=== PATIENT | male | born 1965 | race Caucasian/White ===

== ENCOUNTER 2017-10-12 15:11 | Observation (INO) | payer OTHER ==
[~2017-10-12] VITALS: Ht 165.1 cm; Wt 65.8 kg
[~2017-10-12 15:11] MED LIST: ALBUTEROL0.09 MG/A2; AZITHROMYCIN250 MG PO; MEDROL DOSEPAK1 PAC PO; PREDNISONE 20MG20 MG PO; ZOFRAN ODT4 MG PO
[2017-10-12 16:02] LABS: ABSOLUTE BASOPHIL COUNT 0 /CUMM (0.0-0.2); ABSOLUTE EOSINOPHIL COUNT 0.3 /CUMM (0.0-0.7); ABSOLUTE GRANULOCYTE CT 7.6 /CUMM (1.4-6.5); ABSOLUTE LYMPH COUNT 1.9 /CUMM (1.2-3.4); ABSOLUTE MONOCYTE COUNT 0.6 /CUMM (0.10-0.60); BASOPHIL % 0.4 % (0.0-2.0); EOSINOPHIL % 2.5 % (0-5); GRANULOCYTE % 72.6 % (42.2-75.2); HEMATOCRIT 41.2 % (42-52); MEAN CORPUSCULAR HGB 29.7 PG (27.0-31.0); MEAN CORPUSCULAR HGB CONC 33.9 G/DL (33.0-37.0); MEAN CORPUSCULAR VOLUME 87.6 FL (80.0-94.0); MEAN PLATELET VOLUME 7.1 FL (7.4-10.4); PLATELET COUNT 278 /CUMM (130-400); RED BLOOD CELL CT 4.71 /CUMM (4.70-6.10); WHITE BLOOD CELL COUNT 10.5 /CUMM (4.8-10.8)
--- NOTE | 2017-10-12 17:46 | ED CARDIAC/CP/PALPITATIONS ---
History of Present Illness General Chief Complaint: Chest Pain Stated Complaint: CHEST PAIN, ABDOMINAL PAIN Source: patient Exam Limitations: no limitations Vital Signs & Intake/Output Vital Signs & Intake/Output Vital Signs Date Time Temp Pulse Resp B/P B/P Pulse O2 O2 Flow FiO2 Mean Ox Delivery Rate 10/13 1312 72 18 122/78 100 Room Air ED Intake and Output 10/14 0000 10/13 1200 Intake Total Output Total Balance Patient 145 lb Weight Allergies Coded Allergies: Penicillins (Intermediate, RASH 10/12/17) Triage Note: PT TO ED C/O MID STERNAL C/P AND UPPER ABD PAIN X A FEW DAYS. C/O N/V/D, DENIES S/S. C/O "BAD HEARTBURN". Triage Nurses Notes Reviewed? yes Onset: Abrupt Duration: day(s): Timing: recent history Quality/Severity: moderate, pressure Location: substernal Radiation: no radiation Activities at Onset: none Prior Chest Pain/Card Workup: no prior chest pain HPI: 52yo male with hx of asthma presents to ED complaining of chest pain, heart burn , nausea, vomiting, and diarrhea x 2 days. Chest pain is described as substernal, left-sided, nonradiating, constant, at times severe, currently 8/10 pressure. Chest pain onset was at rest. Chest is not exacerbated or relieved by any factors. Patient has a history of heartburn, reports epigastric heartburn which is sometimes relieved with Maalox. He also reports mild diarrhea, approximately 2 episodes per day, nonbloody. Patient is a current daily tobacco user. Denies drugs or alcohol. Patient denies dyspnea, cough, fevers, chills, urinary symptoms. (Philomena CAZARES,Cally Carson) Reconcile Medications Albuterol (Albuterol Inhaler) 0.09 MG/Actuation LAURI 1 PUFF NA 0100 ASTHMA Omeprazole 20 MG CAPSULE.DR 40 MG PO DAILY AC GERD . (Yanci BAÑUELOS,Vijaya) Past History Travel History Traveled to [place] past 21 day No Medical History Any Pertinent Medical History? see below for history Neurological: NONE EENT: NONE Cardiovascular: NONE Respiratory: asthma, bronchitis, pneumonia Gastrointestinal: NONE Hepatic: NONE Renal: NONE Musculoskeletal: chronic neck pain Psychiatric: bipolar disease Endocrine: NONE Blood Disorders: NONE Cancer(s): NONE IMAGING MANAGER/Reproductive: NONE Surgical History Surgical History: non-contributory, spinal fusion Psychosocial History What is your primary language Portuguese Tobacco Use: Current Daily Use Daily Tobacco Use Amount/Type: => 5 Cigarettes daily ETOH Use: denies use Illicit Drug Use: denies illicit drug use Family History Hx Contributory? No (Cally Alejandra) Review of Systems Review of Systems Constitutional: Reports: no symptoms. EENTM: Reports: no symptoms. Respiratory: Reports: no symptoms. Cardiovascular: Reports: see HPI. GI: Reports: see HPI. Genitourinary: Reports: no symptoms. Musculoskeletal: Reports: no symptoms. Skin: Reports: no symptoms. Neurological/Psychological: Reports: no symptoms. Hematologic/Endocrine: Reports: no symptoms. Immunologic/Allergic: Reports: no symptoms. All Other Systems: Reviewed and Negative (Cally Alejandra) Physical Exam Physical Exam General Appearance: well developed/nourished, no apparent distress, alert, awake Head: atraumatic, normal appearance Eyes: Bilateral: normal appearance. Ears, Nose, Throat: hearing grossly normal Neck: normal inspection, supple, full range of motion Respiratory: normal breath sounds, no respiratory distress, lungs clear Cardiovascular: regular rate/rhythm Peripheral Pulses: 2+ radial (R), 2+ radial (L) Gastrointestinal: normal bowel sounds, soft, no organomegaly, mild epigastric/ LUQ, LLQ tenderness, no rebound or gaurding Back: normal inspection, normal range of motion Extremities: normal inspection, normal range of motion Neurologic/Psych: awake, alert, oriented x 3 Skin: intact, normal color, warm/dry Core Measures ACS in differential dx? Yes CVA/TIA Diagnosis No Sepsis Present: No Sepsis Focused Exam Completed? No (Cally Alejandra) Progress Differential Diagnosis: AMI, aortic dissection, CHF/pulm edema, costochondritis, musculoskeletal pain, myocarditis, pancreatitis, pericarditis, pneumonia, pneumothorax, PSVT, pulmonary embolism, PUD/GERD, PVCs/PACs, unstable angina, V- fib/V-Tach Plan of Care: Orders Procedure Date/time Status Discharge Patient 10/13 UNK Active The patient was discussed with Dr. Pete. EKG has T-wave changes compared to prior EKG in 2015. Repeat EKG unchanged from prior study today. First troponin is negative. Patient complaining of constant, active chest pain, currently 8/ 10. Will medicate with SL nitroglycerin regarding his chest pain. SL nitro reduced patient's chest pain. Discussed this patient with Dr. Hancock. He agrees with plan for telemetry observation regarding patient's active chest pain. Case management agrees with plan for telemetry observation. Diagnostic Imaging: Viewed by Me: Radiology Read. Discussed w/RAD: Radiology Read. CXR Impression: PATIENT: MILAGRO COREA PRESENT AGE: 52 PATIENT ACCOUNT NO: [id number] : 65 LOCATION: [facility] ORDERING PHYSICIAN: Cally CAZARES SERVICE DATE: 10/12/17 EXAM TYPE: RAD - XRY-CHEST XRAY, TWO VIEWS EXAMINATION: XR CHEST CLINICAL INFORMATION: Chest pain. COMPARISON: Chest x-ray 07/30/2017, 2014, 07/03/2015, 09/06/2011 TECHNIQUE: 2 views of the chest were obtained. FINDINGS: Linear scarring/subsegmental atelectasis in the perihilar lung bilateral. There is no acute infiltrate. No pulmonary vascular congestion. No pleural effusion. Heart size is normal. Cardiomediastinal contours are normal. Orthopedic hardware partially visualized lumbar spine. IMPRESSION: No acute abnormality of the chest. DICTATED BY: Bull Peraza MD DATE/TIME DICTATED:10/12/171802 FROZEN PIE MAKER:JUAREZ DATE/ TIME TRANSCRIBED:10/12/171802 CONFIDENTIAL, DO NOT COPY WITHOUT APPROPRIATE AUTHORIZATION. <Electronically signed in Other Vendor System> SIGNED BY: Bull Peraza MD 10/12/171808 Initial ED EKG: sinus rhythm @92bpm, nonspecific ST changes Prior EKG: changed (t wave changes, 08/06/15) Repeat EKG: unchanged (Philomena CAZARES,Cally Carson) Departure Departure Disposition: STILL A PATIENT Condition: Stable Clinical Impression Primary Impression: Chest pain Secondary Impressions: Diarrhea Referrals: Patient Has No Primary Care Dr (PCP/Family) Departure Forms: Customer Survey General Discharge Information Observation Note Spoke With: Rosendo Hancock MD Patient In: Non-ED OBS Care Area Rationale for Observation: My rational for observation is as follows [patient with active chest pain here in the emergency department, persistent for 2 days, relieved with SL nitro, requires further cardiac workup and testing, cardiology consult, trend labs and EKGs, premature discharge would be medically unsafe]. (Cally Alejandra) Departure Prescriptions: Current Visit Scripts Omeprazole 40 MG PO DAILY AC #60 CAP . Observation Note Physician Advisor Notified: SAYRA BAXTER DO PA/SERVICE STATION CASHIER Co-Sign Statement Statement: ED Attending supervision documentation- [X] I saw and evaluated the patient. I have also reviewed all the pertinent lab results and diagnostic results. I agree with the findings and the plan of care as documented in the PA's/SERVICE STATION CASHIER's documentation. [X] I have reviewed the ED Record and agree with the PA's/SERVICE STATION CASHIER's documentation. [] Additions or exceptions (if any) to the PAs/SERVICE STATION CASHIER's note and plan are summarized below: [] (Yanci BAÑUELOS,Vijaya) Critical Care Note Critical Care Note Critical Care Time: non-applicable (Cally Alejandra) Hydrocodone Bitart/ 1 TAB Q6P PRN 10/12 2245 AC Acetaminophen (Vicodin) Morphine Sulfate 2 MG Q6P PRN 10/12 2245 AC (Morphine) Ondansetron HCl 4 MG Q6P PRN 10/12 2200 AC 10/12 (Zofran) 2216 Laboratory Tests 10/12/17 1824: Troponin I < 0.01 10/12/17 1535: Anion Gap 11, Estimated GFR > 60, BUN/Creatinine Ratio 18.8, Glucose 71, Calcium 9.8, Total Bilirubin 0.8, AST 30, ALT 30, Alkaline Phosphatase 76, Troponin I < 0.01, Total Protein 7.7, Albumin 4.6, Globulin 3.1, Albumin/Globulin Ratio 1.5, CBC w Diff NO MAN DIFF REQ, RBC 4.71, MCV 87.6, MCH 29.7, RDW 14.0, MPV 7.1 L, Gran % 72.6, Lymphocytes % 18.4 L, Monocytes % 6.1, Eosinophils % 2.5, Basophils % 0.4, Absolute Granulocytes 7.6 H, Absolute Lymphocytes 1.9, Absolute Monocytes 0.6, Absolute Eosinophils 0.3, Absolute Basophils 0, PUBS MCHC 33.9, [place] 0.2 L The patient was discussed with Dr. Pete. EKG has T-wave changes compared to prior EKG in 2015. Repeat EKG unchanged from prior study today. First troponin is negative. Patient complaining of constant, active chest pain, currently 8/ 10. Will medicate with SL nitroglycerin regarding his chest pain. SL nitro reduced patient's chest pain. Discussed this patient with Dr. Hancock. He agrees with plan for telemetry observation regarding patient's active chest pain. Case management agrees with plan for telemetry observation. (Cally Alejandra) (Yanci BAÑUELOS,Vijaya) Departure Departure Disposition: STILL A PATIENT Condition: Stable Clinical Impression Primary Impression: Chest pain Secondary Impressions: Diarrhea Referrals: Patient Has No Primary Care Dr (PCP/Family) Departure Forms: Customer Survey General Discharge Information Observation Note Spoke With: Rosendo Hancock MD [facility] Patient In: Non-ED OBS Care Area Rationale for Observation: My rational for observation is as follows [patient with active chest pain here in the emergency department, persistent for 2 days, relieved with SL nitro, requires further cardiac workup and testing, cardiology consult, trend labs and EKGs, premature discharge would be medically unsafe]. (Cally Alejandra) Observation Note Physician Advisor Notified: SAYRA BAXTER DO (Yanci BAÑUELOS,Vijaya) Critical Care Note Critical Care Note Critical Care Time: non-applicable (Cally Alejandra)
--- NOTE | 2017-10-12 18:09 | RADIOLOGY REPORT ---
EXAMINATION: XR CHEST CLINICAL INFORMATION: Chest pain. COMPARISON: Chest x-ray 07/30/2017, 2014, 07/03/2015, 09/06/2011 TECHNIQUE: 2 views of the chest were obtained. FINDINGS: Linear scarring/subsegmental atelectasis in the perihilar lung bilateral. There is no acute infiltrate. No pulmonary vascular congestion. No pleural effusion. Heart size is normal. Cardiomediastinal contours are normal. Orthopedic hardware partially visualized lumbar spine. IMPRESSION: No acute abnormality of the chest.
--- NOTE | 2017-10-12 21:25 | History & Physical ---
Osei Patterson MD 10/12/172123: General Information and HPI MD Statement: I have seen and personally examined MILAGRO COREA and documented this H&P. The patient is a 52 year old M who presented with a patient stated chief complaint of [chest pain]. Source of Information: patient, old records History of Present Illness: Patient is a 52 y/o male with PMH signficant for GERD, asthma (not currently on inhalers), bronchitis, pneumonia, spinal fusion, bipolar disorder on lithium presents this admission with chief complaint of chest pain and abdominal pain. Patient states that he started experiencing left sided chest pain 1 day prior to admission. States it started at approximately 8pm on 10/11/2016. Describes the pain as a sharp, burning pain that is most around his left pectoral muscle and radiates to the back. States the pain is constant and has gradually worsened over the past day. States nothing makes the pain worse. States pain is associated with nausea and vomitting (however this is unclear as patient has had abdominal pain for the past 3 days with associated nausea and vomitting). Patient denies any aggravating factors. Patient states he is on chronic pain medications for spinal fusion (reports taking percocet 15mg q6h and oxycontin 45mg q12h). States these pain medications have not relieved the chest pain. Rates the pain a 10/10 in severity. Patient in the ED received received nitroglycerin 0.4mg SL x 1 and reports his pain improved to a 6/10. Patient denies this type of pain in the past. Reports never seeing a wire taper in the past and denies any cardiac or vascular history. Patient reports also having abdominal pain located in the epigastric region for the past 3 days. Describes it as a sharp shooting pain. Patient states it worsens with food - in particular reports burning sensation with cranberry juice. Patient states he has had acid refulx for the past 1 month which has been relieved with mylanta and TUMs. States these medications are no longer relieving the pain. States he has found that yogurt helps relieve the pain. Reports nausea and vomitting. Denies hematemesis. States he is able to tolerate oral intake. Denies diarrhea, bright red blood per rectum or melena. Reports occasional constipation with chronic opioid use. States he had 1 bowel movement this AM with no issues. On ROS: Patient reports occasional SOB, left sided ear pain (now resolved), chills, weight loss, and anxiety and depression. All other ROS negative. Patient denies recent illness, travel or sick contacts. PMH: As above. Patient reports he was told that he has COPD. States he has not seen a machine hand. [facility] PSH: cervical/lumbar spinal fusions FH: +cardiac history: brother ~50 y/o of [place] SH: +tobacco use: ~1ppd for 32 years (states he attempted to quit once 10 years prior for approximately 8 months). Denies alcohol or illicit drug use. On admission: VITALS: T: 96.0, RR: 18-20, BP: 105-116/70-74, HR: 81-91, Pulse Ox: 94-96% on RA Labs: WBC: 10.5, H/H: 14.0/41.2, Platelets: 278 Na: 137, K: 4.5, Cl: 98, CO2: 28, BUN: 15, Cr: 0.8, Glucose: 71, Ca: 9.8, AlkPhos: 76, AST:30, ALT: 30, Trop x2 <0.01 CXR: No acute abnormalities EKG: Sinus Rhythm at a rate of 92 beats per minute, nonspecific ST/T wave changes in leads V2 -V6 (compared to previous EKG in July) Allergies/Medications Home Med list Albuterol (Albuterol Inhaler) 0.09 MG/Actuation LAURI 1 PUFF NA 0100 ASTHMA Omeprazole 20 MG CAPSULE. 40 MG PO DAILY AC GERD . Observation Initial Note - I have personally examined MILAGRO COREA on 10/12/17 at 2316. The disposition of MILAGRO COREA is uncertain at this time and before a determination can be made, he requires a period of observation for the following reasons [] Past History Travel History Traveled to [place] past 21 day No Medical History Neurological: NONE EENT: NONE Cardiovascular: NONE Respiratory: asthma, bronchitis, pneumonia Gastrointestinal: NONE Hepatic: NONE Renal: NONE Musculoskeletal: chronic neck pain Psychiatric: bipolar disease Endocrine: NONE Blood Disorders: NONE Cancer(s): NONE GROUNDMAN/LINEMAN/Reproductive: NONE Surgical History Surgical History: non-contributory, spinal fusion Past Family/Social History Psychosocial History ETOH Use: denies use Illicit Drug Use: denies illicit drug use Review of Systems Review of Systems Constitutional: Reports: see HPI, chills. Cardiovascular: Reports: see HPI. Respiratory: Reports: see HPI. GI: Reports: see HPI. Genitourinary: Denies: no symptoms. Musculoskeletal: Reports: see HPI, back pain. Skin: Denies: no symptoms. Neurological/Psychological: Reports: see HPI, anxiety, depressed. Hematologic/Endocrine: Denies: no symptoms. Immunologic/Allergic: Denies: no symptoms. All Other Systems: Reviewed and Negative Exam & Diagnostic Data Last 24 Hrs of Vital Signs/I&O Vital Signs Date Time Temp Pulse Resp B/P B/P Pulse O2 O2 Flow FiO2 Mean Ox Delivery Rate 10/12 2136 97.2 84 16 110/76 97 Room Air 10/12 1913 81 18 105/70 94 Room Air 10/12 1825 96 Room Air 10/12 1525 96.0 91 20 116/74 96 Room Air Intake & Output 10/12 1600 10/12 0800 10/12 0000 Intake Total Output Total Balance Patient 145 lb Weight Weight Reported by Patient Measurement Method Physical Exam General Appearance Alert, Oriented X3, Cooperative, No Acute Distress Skin No Rashes Skin Temp/Moisture Exam: Warm/Dry HEENT Atraumatic, PERRLA, EOMI, Mucous Membr. moist/pink Neck Supple, No JVD, +2 Carotid Pulse wo Bruit Lymphatic Cervical nl Cardiovascular Regular Rate, Normal S1, Normal S2, No Murmurs Lungs Clear to Auscultation, Normal Air Movement Abdomen Normal Bowel Sounds, Soft, tenderness to palpation in LLQ and LUQ with no rebound, guarding or rigidity Neurological Normal Speech, Strength at 5/5 X4 Ext, Normal Tone, Sensation Intact, Cranial Nerves 3-12 NL Extremities No Clubbing, No Cyanosis, No Edema, Normal Pulses, No Tenderness/ Swelling Vascular Normal Pulses, Pulses Symmetrical Last 24 Hrs of Labs/Mihai: Laboratory Tests 10/12/17 1824: Troponin I < 0.01 10/12/17 1535: Anion Gap 11, Estimated GFR > 60, BUN/Creatinine Ratio 18.8, Glucose 71, Calcium 9.8, Total Bilirubin 0.8, AST 30, ALT 30, Alkaline Phosphatase 76, Troponin I < 0.01, Total Protein 7.7, Albumin 4.6, Globulin 3.1, Albumin/Globulin Ratio 1.5, CBC w Diff NO MAN DIFF REQ, RBC 4.71, MCV 87.6, MCH 29.7, RDW 14.0, MPV 7.1 L, Gran % 72.6, Lymphocytes % 18.4 L, Monocytes % 6.1, Eosinophils % 2.5, Basophils % 0.4, Absolute Granulocytes 7.6 H, Absolute Lymphocytes 1.9, Absolute Monocytes 0.6, Absolute Eosinophils 0.3, Absolute Basophils 0, PUBS MCHC 33.9, [place] 0.2 L Assessment/Plan Assessment: Patient is a 52 y/o male current tobacco user with PMH of GERD, asthma, bipolar disorder and spinal fusion on chronic pain medication presenting with 1 day history of constant chest pain. Patient will be placed on observation for the followin. Chest pain: patient is currently having atypical chest pain which is minimally relieved with nitroglycerin. Current EKG changes show nonspecific ST and cardiac markers remain negative x 2. With patient's smoking history, aspirin use and signficant family history the patient is at high risk of a cardiac event. * Will observe patient on telemetry * Will do serial EKG and Troponins * Will give morphine and nitro for pain relief PRN * Will give aspirin * Will do ECHO * Lipid panel, TSH 2. Epigastric Pain - Likely GERD vs cardiac * Will start on PPI * Zofran IV PRN for nausea/vomitting 3. History of Bipolar Disorder * [place] level checked * Confirm home medication with pharmacy in AM (currently closed) 4. Chronic back pain 2/2 Spinal fusion * Placed on pain pathway * Confirm home medications with pharmacy prior to restarting DVT PPX: Lovenox Code: Full Code Diet: Heart Healthy Diet As Ranked By This Provider Problem List: 1. Chest pain Core Measures/Misc (06/27) Acute Coronary Syndrome ACS Diagnosis: No Congestive Heart Failure Congestive Heart Failure Diagnosis No Cerebrovascular Accident CVA/TIA Diagnosis: No VTE (View Protocol) VTE Risk Factors No risk factors No Mechanical VTE Prophylaxis d/t N/A MechProphylax Ordered No VTE Pharm Prophylaxis d/t NA PharmProphylax ordered Sepsis (View protocol) Sepsis Present: No Nereida Esqueda MD 10/12/17 2201: General Information and HPI Allergies/Medications Allergies: Coded Allergies: Penicillins (Intermediate, RASH 10/12/17) Observation Initial Note - I have personally examined MILAGRO COREA on 10/12/17 at 2251. The disposition of MILAGRO COREA is uncertain at this time and before a determination can be made, he requires a period of observation for the following reasons [rule out ACS, serial EKG and troponins, ECHO] Exam & Diagnostic Data Last 24 Hrs of Vital Signs/I&O Vital Signs Date Time Temp Pulse Resp B/P B/P Pulse O2 O2 Flow FiO2 Mean Ox Delivery Rate 10/12 2136 97.2 84 16 110/76 97 Room Air 10/12 1913 81 18 105/70 94 Room Air 10/12 1825 96 Room Air 10/12 1525 96.0 91 20 116/74 96 Room Air Intake & Output 10/12 1600 10/12 0800 10/12 0000 Intake Total Output Total Balance Patient 65.771 kg Weight Weight Reported by Patient Measurement Method Resident Review Statement Resident Statement: examined this patient, discussed with internal controls manager, agreed with internal controls manager, discussed with family, reviewed EMR data (avail), discussed with nursing Other Findings: Patient is a 52 YO M with PMH significant for spinal stenosis, bipolar disorder, heart burn presented with sudden onset chest pain started yesterday evening while at rest. He describes the pain as burning sensation, over the left chest region, intensity 10/10, associated nausea/vomiting, no associated diaphoresis. It remained persisted throughout the night till am but unable to come to ER due to transportation issues. It is associated with mild shortness of breath and not worse with breathing, improved with leaning forward and worse with lying back. He did have abdominal pain with N/V for the past 3days. He came to ER with his girlfriend in the morning. His chest pain got better with SL nitroglycerine in the ER. By the time of interview patient still reports burning pain around 6/10 with significant nausea. PMH Bipolar disorder, back pain, asthma --?? COPD Stress test long ago - cant remember. Allergic to penicillin Meds [place] 10mg BID - gets at [facility] pain medications for back pain - oxycontine and percocet Aspirin 81mg daily - last dose yesterday family history Brother of massive [place] at age 51 yrs ago. smokes > 1 pack per day 38 yrs ago. No alcohol/drugs Surgical Cervical and spinal fusion surgery. knee surgery. Vital signs at presentation Afebrile, heart rate 91, blood pressure 116/71 mmHg, saturating well on room air Physical examination General appearance in mild distress, HEENT PERRLA, neck supple without any JVD, heart S1-S2 normal without any murmurs/rubs/gallops, lungs clear for auscultation, abdomen benign with normal bowel sounds, lower extreme is pulses 2 + without any edema/cyanosis. Labs White count 10.5, H&H 14/41, platelets 278. Sodium 137, potassium 4.5, Coreg 98 bicarbonate 28, BUN/creatinine 15/0.8 troponin less than 0.01 twice. Chest x-ray no acute cardiopulmonary pathology EKG Normal sinus rhythm with heart rate 80, Narrow and regular QRS - nonspecific ST- T wave changes from V2 to V6 Assessment Patient is a 52 YO actively smoking male with PMH significant for heart burn presented with sudden onset heartburn like left sided nonradiating chest pain which was relieved with SL nitroglycerine. He did have significant family history of brother decreased with massive [place] at 51yrs and he currently takes aspirin. VS at presentation were stable, Physical exam is unremarkable with hear S1,S2 normal, no murmurs/gallops/rubs. No edema. Vital signs were stable, physical examination and labs are unremarkable with a troponin less than 0.01. Chest x-ray without any acute cardiopulmonary pathology. EKG shows normal sinus rhythm with nonspecific ST-T wave changes in V2 to V6 which are new from prior EKG. Although patient is a middle-aged male without any significant coronary artery disease given his chest pain got better with sublingual nitroglycerin, 40-pack- year smoking history, strong family history of brother dying at 51-year-old with massive [place], EKG changes consistent with new nonspecific ST T-wave changes from V2 to V6 -- it is prudent to rule out ACS Plan Admit to telemetry floor for continuous rhythm monitoring Atypical chest pain * Serial troponins and EKGs * A dose of aspirin 325mg given in ER * Sublingual nitroglycerin as needed for chest pain * Echocardiogram to rule out wall motion abnormalities History of bipolar disorder Patient was on lithium apparently, his lithium is 0.2. Patient follows serious in [place] which is currently closed. We need to confirm the dose by calling [facility] pharmacy in the morning History of spinal stenosis and chronic back pain Patient is on OxyContin and Percocet for his pain management. Please continue the same History of GERD Continue omeprazole Nicotine dependence Culture nicotine patch DVT prophylaxis Subcutaneous heparin CODE STATUS Full code Fransisca BAÑUELOS,Vincent N 10/13/17 1241: Attending MD Review Statement Attending Statement Attending MD Statement: examined this patient, discuss w/resident/PA/SYSTEMS OPERATOR, agreed w/resident/PA/SYSTEMS OPERATOR, discussed with family, reviewed EMR data (avail), discussed with nursing, discussed with case mgmt, reviewed images, amended to note Attending Assessment/Plan: The patient is a 52-year-old male admitted for evaluation of atypical chest discomfort. I had a long discussion with the patient this morning. He continues to have a long history of reflux type symptoms. His symptoms were not appreciably changed by sublingual nitroglycerin glycerin. At the moment, he has multiple symptoms including a central chest pressure which has been persistent for more than 24 hours. It is somewhat positional. He also has some left-sided discomfort which is increased with inspiration. He denies any exertional symptoms. His ECG and troponins have all been negative. Recommendations: -Out of bed and ambulate -GI cocktail to be given -Increase PPI dose -If the patient ambulated without difficulty, I suspect his symptoms are largely GI related. The patient can be discharged for further follow-up with me as an outpatient. -The patient will have a pharmacologic nuclear stress test as an outpatient. -Formal GI evaluation as outpatient.
[2017-10-12 23:09] LABS: LITHIUM 0.2 mmol/L (0.6-1.2)
[2017-10-13 06:09] VITALS: BP 114/70
[2017-10-13 06:18] LABS: ABSOLUTE BASOPHIL COUNT 0 /CUMM (0.0-0.2); ABSOLUTE EOSINOPHIL COUNT 0.2 /CUMM (0.0-0.7); ABSOLUTE GRANULOCYTE CT 8.3 /CUMM (1.4-6.5); ABSOLUTE LYMPH COUNT 1.9 /CUMM (1.2-3.4); ABSOLUTE MONOCYTE COUNT 0.4 /CUMM (0.10-0.60); BASOPHIL % 0.3 % (0.0-2.0); EOSINOPHIL % 2.3 % (0-5); GRANULOCYTE % 76.1 % (42.2-75.2); HEMATOCRIT 45.8 % (42-52); MEAN CORPUSCULAR HGB 29.4 PG (27.0-31.0); MEAN CORPUSCULAR HGB CONC 33.6 G/DL (33.0-37.0); MEAN CORPUSCULAR VOLUME 87.5 FL (80.0-94.0); PLATELET COUNT 268 /CUMM (130-400); RBC DISTRIBUTION WIDTH 14.2 % (11.5-14.5); RED BLOOD CELL CT 5.23 /CUMM (4.70-6.10); WHITE BLOOD CELL COUNT 10.9 /CUMM (4.8-10.8)
--- NOTE | 2017-10-13 08:28 | PN- Housestaff ---
Subjective Follow-up For: chest pain Tele-Events Since Last Visit: NSR Subjective: Chest pain is persisent, described as burning, sometimes radiates to jaw, on left side. Also having burping, N/V, diarrhea. Pain better when sitting up. No SOB or other issues. Review of Systems Constitutional: Reports: no symptoms. EENTM: Reports: no symptoms. Cardiovascular: Reports: see HPI. Respiratory: Reports: no symptoms. Gastrointestinal: Reports: see HPI. Genitourinary: Reports: no symptoms. Musculoskeletal: Reports: no symptoms. Skin: Reports: no symptoms. Neurological/Psychological: Reports: no symptoms. Hematologic/Endocrine: Reports: no symptoms. Immunologic/Allergic: Reports: no symptoms. Objective Last 24 Hrs of Vital Signs/I&O Vital Signs Date Time Temp Pulse Resp B/P B/P Pulse O2 O2 Flow FiO2 Mean Ox Delivery Rate 10/13 0609 96.8 78 18 114/70 96 Room Air 10/13 0602 96.8 78 18 114/70 96 Room Air 10/13 0146 97.1 81 16 104/66 98 Room Air 10/12 2327 97.4 85 18 116/72 98 Room Air 10/12 2136 97.2 84 16 110/76 97 Room Air 10/12 1913 81 18 105/70 94 Room Air 10/12 1825 96 Room Air 10/12 1525 96.0 91 20 116/74 96 Room Air Intake & Output 10/13 1600 10/13 0800 10/13 0000 Intake Total 0 Output Total Balance 0 Intake, IV 0 Patient 145 lb Weight Physical Exam General Appearance: Alert, Oriented X3, Cooperative, No Acute Distress Cardiovascular: Regular Rate, Normal S1, Normal S2 Lungs: Clear to Auscultation Abdomen: Normal Bowel Sounds, Soft, No Tenderness Neurological: Normal Speech Extremities: No Edema, Normal Pulses, No Tenderness/Swelling Current Medications: Current Medications Sig/Trupti Start time Last Medication Dose Route Stop Time Status Admin Acetaminophen 650 MG Q6P PRN 10/12 2245 AC PO Aspirin 0 .STK-MED ONE 10/12 2232 DC PO Aspirin 325 MG ONCE ONE 10/12 2229 DC 10/12 PO 10/12 2230 2230 Calcium Carbonate 500 MG Q2 PRN 10/13 0830 UNVr PO Calcium Carbonate 500 MG ONE ONE 10/13 0745 DC 10/13 PO 10/13 0746 0742 Enoxaparin Sodium 40 MG AT BEDTIME 10/13 2200 AC SC Enoxaparin Sodium 0 .STK-MED ONE 10/12 2214 DC SC Enoxaparin Sodium 40 MG DAILY 10/12 2127 DC 10/12 SC 2216 Famotidine 20 MG ONCE ONE 10/13 0830 UNVr PO 10/13 0831 Hydrocodone Bitart/ 1 TAB Q6P PRN 10/12 2245 DC Acetaminophen PO Morphine Sulfate 0 .STK-MED ONE 10/13 0736 DC .ROUTE Morphine Sulfate 2 MG Q6P PRN 10/12 2245 AC 10/13 IV 0741 Multivitamins 1 TAB DAILY 10/13 1000 AC PO Nitroglycerin 0.4 MG ONCE ONE 10/12 1900 DC 10/12 SL 10/12 1901 1859 Nitroglycerin 0 .STK-MED ONE 10/12 1858 DC SL Omeprazole 40 MG DAILY AC 10/13 0820 AC PO Ondansetron HCl 0 .STK-MED ONE 10/12 221 DC .ROUTE Ondansetron HCl 4 MG Q6P PRN 10/12 2200 AC 10/12 IV 2216 Oxycodone/ 0 .STK-MED ONE 10/13 0416 DC Acetaminophen PO Oxycodone/ 1 TAB Q6P PRN 10/13 0415 AC 10/13 Acetaminophen PO 0425 Last 24 Hrs of Lab/Mihai Results Last 24 Hrs of Labs/Mics: Laboratory Tests 10/13/17 0558: Anion Gap 11, Estimated GFR > 60, BUN/Creatinine Ratio 20.0, Troponin I < 0.01, Triglycerides 192 H, Cholesterol 181, LDL Cholesterol, Calc 107, HDL Cholesterol 36 L, Cholesterol/HDL Ratio 5 H, CBC w Diff NO MAN DIFF REQ, RBC 5.23, MCV 87.5, MCH 29.4, RDW 14.2, MPV 7.0 L, Gran % 76.1 H, Lymphocytes % 17.3 L, Monocytes % 4.0, Eosinophils % 2.3, Basophils % 0.3, Absolute Granulocytes 8.3 H, Absolute Lymphocytes 1.9, Absolute Monocytes 0.4, Absolute Eosinophils 0.2, Absolute Basophils 0, PUBS MCHC 33.6 10/13/17 0009: Troponin I < 0.01 10/12/17 2325: Urine Opiates Screen 1586.00, Methadone Screen < 40, Barbiturate Screen < 60, Ur Phencyclidine Scrn < 6.00, Amphetamines Screen < 100, U Benzodiazepines Scrn < 85, Urine Cocaine Screen < 50, Urine Cannabis Screen < 5.00 10/12/17 1824: Troponin I < 0.01 10/12/17 1535: Anion Gap 11, Estimated GFR > 60, BUN/Creatinine Ratio 18.8, Glucose 71, Calcium 9.8, Total Bilirubin 0.8, AST 30, ALT 30, Alkaline Phosphatase 76, Troponin I < 0.01, Total Protein 7.7, Albumin 4.6, Globulin 3.1, Albumin/Globulin Ratio 1.5, TSH 2.610, Free T4 1.44, CBC w Diff NO MAN DIFF REQ, RBC 4.71, MCV 87.6, MCH 29.7, RDW 14.0, MPV 7.1 L, Gran % 72.6, Lymphocytes % 18.4 L, Monocytes % 6.1, Eosinophils % 2.5, Basophils % 0.4, Absolute Granulocytes 7.6 H, Absolute Lymphocytes 1.9, Absolute Monocytes 0.6, Absolute Eosinophils 0.3, Absolute Basophils 0, PUBS MCHC 33.9, [place] 0.2 L Assessment/Plan Assessment: Patient is a 52 y/o male current tobacco user with PMH of GERD, asthma, bipolar disorder and spinal fusion on chronic pain medication presenting with 1 day history of constant chest pain. Problem list: 1. Chest pain syndrome #Chest pain syndrome: The patient is describing chest pain that most resembles acid reflux. His EKG and troponins times 4 all been negative. After his echocardiogram, he can likely be discharged. -Omeprazole, calcium carbonate -Follow-up TTE #Chronic medical problems: -Continue home meds DVT prophylaxis with enoxaparin HEART HEALTHY diet Full code Problem List: 1. Chest pain Pain Ratin Pain Location: CHEST Pain Goal: Remain pain free Pain Plan: see a/p Tomorrow's Labs & Rationales: none
[2017-10-13] MEDS ORDERED: OMEPRAZOLE20 M2 PO ×2 (11:19→13:01)
--- NOTE | 2017-10-13 11:20 | Patient Discharge Instructions ---
See Addendum Discharge Instructions General Discharge Information You were seen/treated for: Gastroesophageal reflux disease Watch for these problems: Chest pain, shortness of breath, fever Special Instructions: Please take all medications as directed. Please follow-up with your primary care doctor in 1 week. Acute Coronary Syndrome Inclusion Criteria At DC or during hospital stay patient has or had the following: ACS DIAGNOSIS No Discharge Core Measures Meds if any: Prescribed or Continued at Discharge Meds if any: NOT Prescribed or Continued at Discharge Congestive Heart Failure Inclusion Criteria At DC or during hospital stay patient has or had the following: CHF DIAGNOSIS No Discharge Core Measures Meds if any: Prescribed or Continued at Discharge Meds if any: NOT Prescribed or Continued at Discharge Cerebrovascular accident Inclusion Criteria At DC or during hospital stay patient has or had the following: CVA/TIA Diagnosis No Discharge Core Measures Meds if any: Prescribed or Continued at Discharge Meds if any: NOT Prescribed or Continued at Discharge Venous thromboembolism Inclusion Criteria VTE Diagnosis No VTE Type NONE VTE Confirmed by (Test) NONE Discharge Core Measures - Per Current guidelines, there needs to be overlap - treatment for the first 5 days of Warfarin therapy. - If discharged on Warfarin prior to 5 days of - overlap therapy, the patient will need to be - assessed for post discharge needs including - *Post discharge parental anticoagulation - *Warfarin and/or parental anticoagulation education - *Follow up date to check INR post discharge At least 5 days overlap therapy as Inpatient No Meds if any: Prescribed or Continued at Discharge Note: Overlap Therapy is Warfarin and Anticoagulant Meds if any: NOT Prescribed or Continued at Discharge
[2017-10-13 13:12] VITALS: BP 122/78
--- NOTE | 2017-10-19 16:32 | ECHOCARDIOGRAM REPORT ---
KATALINARebeccaMILAGRO Age: 52 : 1965 Gender: M Exam Date: 10/13/2017 10:23 Exam Location: ER Ht (in): 65 Wt (lb): 145 BSA: 1.75 BP: 114 / 70 Ordering Physician: Nereida Esqueda MD Referring Physician: Nereida Esqueda MD Technologist: Binu Justin JUDITH Room Number: 12 Indications: LV FUNCTION AFTER ACS Rhythm: Sinus Technical Quality: Fair, Technically difficult study FINDINGS Left Ventricle Normal size left ventricle. No obvious regional wall motion abnormalities. Normal left ventricular ejection fraction estimated at 55-60%. Right Ventricle Right ventricle not well visualized, grossly normal. Right Atrium Normal right atrial size. Left Atrium Normal left atrial size. Mitral Valve Structurally normal mitral valve. Aortic Valve Trileaflet aortic valve. Focal thickening of the aortic valve cusps. No aortic stenosis. No aortic regurgitation. Tricuspid Valve Tricuspid valve not well visualized, grossly normal. Physiologic tricuspid regurgitation. Pulmonic Valve Other cardiac valves structurally and functionally normal. Trace pulmonic regurgitation. Pericardium Minimal pericardial effusion (normal variant). Great Vessels Aortic root and proximal ascending aorta not well visualized, grossly normal. CONCLUSIONS 1. This was a technically difficult examination. 2. Minimal aortic sclerosis is present with no valvular stenosis or insufficiency. 3. The mitral valve appears anatomically normal. 4. A physiologic pericardial effusion is present which is hemodynamically insignificant. 5. The left ventricular chamber size and systolic function appear normal with no resting wall motion abnormalities. 6. Minimal tricuspid and pulmonic insufficiency are present with no evidence of pulmonary hypertension. THIS STUDY WAS AMENDED ONLY TO CORRECT PATIENT IDENTIFIERS Mariel Gongora M.D. (Electronically Signed) Final Date: 13 October 2017 12:18 Amended: 18 October 2017 13:52 MEASUREMENTS (Male / Female) Normal Values 2D ECHO LV Diastolic Diameter PLAX 4.5 cm 4.2 - 5.9 / 3.9 - 5.3 cm LV Systolic Diameter PLAX 2.9 cm 2.1 - 4.0 cm LV Fractional Shortening PLAX 35.6 % 25 - 46 % LV Ejection Fraction 2D Teich 65.2 % IVS Diastolic Thickness 1.0 cm LVPW Diastolic Thickness 1.0 cm LV Relative Wall Thickness 0.4 RV Internal Dim ED PLAX 3.3 cm 1.9 - 3.8 cm LVOT Diameter 1.9 cm Aortic Root Diameter 3.3 cm LA Systolic Diameter LX 2.4 cm 3.0 - 4.0 / 2.7 - 3.8 cm Ascending Aorta Diameter 2.5 cm DOPPLER AV Peak Velocity 101.0 cm/s AV Peak Gradient 4.1 mmHg AV Mean Velocity 68.6 cm/s AV Mean Gradient 2.0 mmHg AV Velocity Time Integral 21.2 cm LVOT Peak Velocity 82.7 cm/s LVOT Peak Gradient 2.7 mmHg LVOT Mean Velocity 57.9 cm/s LVOT Mean Gradient 1.0 mmHg LVOT Velocity Time Integral 16.9 cm LVOT Stroke Volume 47.9 cm AV Area Cont Eq vti 2.3 cm AV Area Cont Eq pk 2.3 cm MV Peak Velocity 81.3 cm/s MV Peak Gradient 2.6 mmHg MV Mean Velocity 37.7 cm/s MV Mean Gradient 1.0 mmHg Mitral E Point Velocity 47.4 cm/s Mitral A Point Velocity 50.8 cm/s Mitral E to A Ratio 0.9 MV PHT Velocity 58.4 cm/s MV Deceleration Hinds 220.0 cm/s MV Pressure Half Time 79.6 ms MV Area PHT 2.8 cm MV Deceleration Time 356.0 ms PV Peak Velocity 133.5 cm/s PV Peak Gradient 7.1 mmHg PV Mean Velocity 81.0 cm/s PV Mean Gradient 3.3 mmHg PV Velocity Time Integral 23.6 cm LV E' Lateral Velocity 13.9 cm/s Mitral E to LV E' Lateral Ratio 3.4 LV E' Septal Velocity 7.6 cm/s Mitral E to LV E' Septal Ratio 6.2
== END 2017-10-13 14:51 ==
LOC: ERH 15:11 → ERHI 19:58 → CANRESERV 10-13 06:06 → ENRESERV 10-13 06:06 → ERHI 10-13 14:51
PROVIDERS: Emergency Medicine; Internal Medicine
DX: R07.89 Other chest pain (principal); K21.9 Gastro-esophageal reflux disease without esophagitis; R10.13 Epigastric pain; J45.909 Unspecified asthma, uncomplicated; F31.9 Bipolar disorder, unspecified; F17.200 Nicotine dependence, unspecified, uncomplicated; M54.2 Cervicalgia
CPT/HCPCS: 6090; 71046; 80307; 82436; 93005; 93010; 93306; 96372; 96374; 96375; G0378; J1650; J2405; J3490